=== PATIENT | male | born 1990 | race Caucasian/White ===

== ENCOUNTER 2023-01-29 10:01 | Day surgery (SDC) | payer OTHER, SELFPAY ==
[2023-01-26] MEDS: MIDAZOLAM HCL 1 MG/ML inj IVP (12:36)
[2023-01-26] MEDS: fentaNYL 100 MCG/2 ML inj IVP (12:36)
[2023-01-26] MEDS: LACTATED RINGERS 1000 ML 1,000 ML 100 ML IV (12:40)
[2023-01-29] VITALS (12 sets, daily range): BP systolic 114–142; BP diastolic 52–84; PULSE 60–78; RESP 13–19; TEMP 36.3–36.5; O2SAT 93–99; BMI 25.5
[2023-01-29] MEDS: SODIUM CHLORIDE 0.9 % (FLUSH) 10 ML SYRINGE IVF (11:07)
--- NOTE | 2023-01-29 12:44 | SUR.PREOP ---
TIME?OUT:?1232 PT/RN/MDA?VERIFICATION?OF?SURGICAL?SITE,?PROCEDURE,?AND?CONSENT OBTAINED?PRIOR?TO?INVASIVE?PROCEDURE. right shoulder
--- NOTE | 2023-01-29 12:49 | W.PM.NB ---
Nerve Block Nerve Block Time Seen by Provider: 12:33 Date Seen: 01/29/23 Type of block requested by surgeon for post-operative analgesia: supraclavicular Side: right Time out performed: Yes Verification of patient name: Yes Verification of date of : Yes Site marking: site marked Name of person performing procedure: Willard Continuous monitoring Was continuous monitoring of O2 sat, B/P, cardiac monitor technician, recorded every 15 minutes?: Yes Procedure Checklist: sterile prep, needles and gloves Ultrasound guided. Images saved: Yes Medications given in 5ml increments after negative aspiration: Ropivicaine %: 0.5 mL: 20 Needle gauge: 22 Decadron (mg): 10 Precedex (mcg): 25 Patient tolerated procedure well: Yes Block Charges Block Charge (with Pro Fee): Brachial Plexus Use of Ultrasound Machine for Block: Yes- US Guidance/pain block
[2023-01-29] MEDS: CEFAZOLIN 2 GM in 0.9 % SODIUM CHLORIDE Mini-bag 100 ML IVPB (12:50)
--- NOTE | 2023-01-29 12:50 | W.ANESCHARGE ---
Anesthesia Charges Start Date/Time Anesthesia Start Date: 01/29/23 Anesthesia Start Time: 12:40 Stop Date/Time Anesthesia Stop Date: 01/29/23 Anesthesia Stop Time: 14:01
[2023-01-29] MEDS: EPINEPHrine 1 MG in SODIUM CHLORIDE IRRIG SOLUTION 3,000 ML 6002 MG IRRIGATION (13:38)
--- NOTE | 2023-01-29 13:41 | P.ORPRC_ITS ---
Procedure Note Date of procedure: 01/29/23 Procedure: PREOPERATIVE DIAGNOSES: 1. Right shoulder subacromial impingement syndrome. 2. Right shoulder AC joint osteoarthritis, primary, severe POSTOPERATIVE DIAGNOSES: 1. Right shoulder subacromial impingement syndrome. 2. Right shoulder AC joint osteoarthritis, primary, severe NAME OF OPERATION: 1. Right shoulder arthroscopic distal clavicle excision. 2. Right shoulder arthroscopic subacromial decompression/partial acromioplasty SURGEON: Earnest Carlin MD MUSIC INTERN: Layo Stiles PA-C. Of note, an assistant portfolio manager was critical for this case to aide in patient positioning, suture manipulation, arm positioning, instrument positioning, and closure. ANESTHESIA: General plus preoperative supraclavicular block. IMPLANTS: None COMPLICATIONS: None evident INDICATIONS: The patient is a pleasant, 32-year-old male who has experienced right shoulder pain that has been increasing in recent time. Physical exam and imaging were consistent with a subacromial impingement syndrome and AC arthrosis. MRI was obtained indeed confirmed substantial AC joint capsular hypertrophy and edema of the distal clavicle. Given their findings, as well as the pain, and inadequate response to nonoperative management, recommendation was made for surgery. FINDINGS: Exam under anesthesia revealed stable shoulder with excellent range of motion. The diagnostic arthroscopy revealed healthy chondral surfaces of the glenohumeral joint. The Subscapularis tendon was intact with healthy attachment. The long head of the biceps tendon was intact. The rotator cuff tendon was found to be intact with a normal sail sign and no evidence of partial-thickness or full-thickness tearing. The labrum was intact and healthy without evidence of degenerative tearing or fraying. No loose bodies were identified within the pouch or subscapularis recess. PROCEDURE: Following a thorough discussion of risks, benefits, and alternatives, consent was obtained and the right shoulder was marked. The patient was brought to the operating room and placed supine on the operating table. Induction of anesthesia was completed after preoperative supraclavicular block was administered in preop holding. Appropriate time out was performed identifying proper patient, site, and procedure. 2 g IV Ancef was administered within 1 hour of incision preoperatively. The right upper extremity was prepped and draped in the appropriate sterile fashion using ChloraPrep prep. This was after the patient was positioned in the beach chair with their head in neutral alignment and all bony prominences well padded. The shoulder was insufflated with 20mL of normal saline via an 18g spinal needle from a posterior approach. An 11 blade skin incision allowed a blunt trochar to be inserted and diagnostic arthroscopy to be performed with the findings as noted above. An anterior portal was established with an outside in technique. This allowed the probe to be inserted and confirm the diagnostic arthroscopic findings. We then went into the subacromial space. This revealed abundant bursitis and again a hypertrophied AC joint capsule. The shaver and [place] cautery device were then inserted and allowed debridement of the subacromial bursa/subdeltoid bursa. Following this, the subacromial decompression/partial acromioplasty was performed with a 5.5 mm bur. This bur was then utilized for distal clavicle excision removing approximately 8 mm of distal clavicle. The camera was v isualized within the AC joint space and found that the bone was completely removed from the more caudal to the more cephalad position confirming release/excision while sparing the superior and posterior capsule. Thereafter, the shaver was reinserted into the subacromial space and all remaining bony debris was excised. The rotator cuff was reassessed and confirmed to be intact. Instruments removed, excess fluid was drained, closure performed with 4 Monocryl and Steri-Strips. Dressings were applied. Sling was applied. The patient was awoken from anesthesia and transferred to the PACU in stable condition. PLAN: 1. Elbow, forearm, wrist and digit range of motion as tolerated. 2. Encouraged ice. 3. Percocet for pain as needed. 4. Sling for comfort. May remove for ROM and showering. 5. Follow up with me in 1-2 weeks for wound check.
--- NOTE | 2023-01-29 14:04 | W.ANESCHARGE ---
Anesthesia Charges Start Date/Time Anesthesia Start Date: 01/29/23 Anesthesia Start Time: 12:40 Stop Date/Time Anesthesia Stop Date: 01/29/23 Anesthesia Stop Time: 14:01
== END 2023-01-29 15:13 | disposition home or self-care (01) ==
LOC: OR 10:03
PROVIDERS: PCP Surgery; Visit Provider Orthopaedic Surgery Sports Medicine
PROC: (CPT 29805; principal; 2023-01-29 12:00)
DX: M75.41 Impingement syndrome of right shoulder (principal); M19.011 Primary osteoarthritis, right shoulder; M75.51 Bursitis of right shoulder
CPT/HCPCS: 29826; 29824; 01630; 76942; J0171; J0330; J0690; J1100; J2250; J2405; J2704; J2795; J3010; J7120; L3670

== ENCOUNTER 2023-03-21 06:04 | Day surgery (SDC) | payer OTHER, SELFPAY ==
[2023-03-21] VITALS (15 sets, daily range): BP systolic 126–151; BP diastolic 72–96; PULSE 58–83; RESP 16–20; TEMP 36.1–36.6; O2SAT 97–100; BMI 24.4
[2023-03-21] MEDS: LACTATED RINGERS 1000 ML 1,000 ML 100 ML IV (06:50)
[2023-03-21] MEDS: SODIUM CHLORIDE 0.9 % (FLUSH) 10 ML SYRINGE IVF (06:51)
--- NOTE | 2023-03-21 07:06 | SUR.PREOP ---
TIME?OUT:?0707 PT/RN/MDA?VERIFICATION?OF?SURGICAL?SITE,?PROCEDURE,?AND?CONSENT OBTAINED?PRIOR?TO?INVASIVE?PROCEDURE.
[2023-03-21] MEDS: MIDAZOLAM HCL 1 MG/ML inj IVP (07:07)
[2023-03-21] MEDS: fentaNYL 100 MCG/2 ML inj IVP (07:07)
[2023-03-21] MEDS: CEFAZOLIN 2 GM in 0.9 % SODIUM CHLORIDE Mini-bag 100 ML IVPB (07:48)
[2023-03-21] MEDS: EPINEPHrine 1 MG in SODIUM CHLORIDE IRRIG SOLUTION 3,000 ML 12004 MG IRRIGATION ×2 (08:00→08:30)
--- NOTE | 2023-03-21 08:54 | W.ANESCHARGE ---
Anesthesia Charges Start Date/Time Anesthesia Start Date: 03/21/23 Anesthesia Start Time: 07:28 Stop Date/Time Anesthesia Stop Date: 03/21/23 Anesthesia Stop Time: 08:52
--- NOTE | 2023-03-21 09:07 | W.ANESCHARGE ---
Anesthesia Charges Start Date/Time Anesthesia Start Date: 03/21/23 Anesthesia Start Time: 07:28 Stop Date/Time Anesthesia Stop Date: 03/21/23 Anesthesia Stop Time: 08:52
--- NOTE | 2023-03-21 09:08 | P.NB_ITS ---
Nerve Block Nerve Block Time Seen by Provider: 07:12 Date Seen: 03/21/23 Type of block requested by surgeon for post-operative analgesia: supraclavicular Side: left Time out performed: Yes Verification of patient name: Yes Verification of date of : Yes Site marking: site marked Name of person performing procedure: Willard Continuous monitoring Was continuous monitoring of O2 sat, B/P, cardiac cath technologist, recorded every 15 minutes?: Yes Procedure Checklist: sterile prep, needles and gloves Ultrasound guided. Images saved: Yes Medications given in 5ml increments after negative aspiration: Ropivicaine %: 0.5 mL: 20 Needle gauge: 22 Decadron (mg): 10 Precedex (mcg): 25 Patient tolerated procedure well: Yes Block Charges Block Charge (with Pro Fee): Brachial Plexus Use of Ultrasound Machine for Block: Yes- US Guidance/pain block
--- NOTE | 2023-03-21 11:18 | PM.ORPRC ---
Procedure Note Date of procedure: 03/21/23 Procedure: PREOPERATIVE DIAGNOSES: 1. Left shoulder subacromial impingement syndrome. 2. Left shoulder AC joint osteoarthritis, primary, severe POSTOPERATIVE DIAGNOSES: 1. Left shoulder subacromial impingement syndrome. 2. Left shoulder AC joint osteoarthritis, primary, severe NAME OF OPERATION: 1. Left shoulder arthroscopic distal clavicle excision. 2. Left shoulder arthroscopic subacromial decompression/partial acromioplasty SURGEON: Earnest Carlin MD INSULATION HOSEMAN: Be HAMMOND. Of note, an assistant store manager was critical for this case to aide in patient positioning, suture manipulation, arm positioning, instrument positioning, and closure. ANESTHESIA: General plus preoperative supraclavicular block. EBL: 25 mL IMPLANTS: None COMPLICATIONS: None evident INDICATIONS: The patient is a pleasant, 32-year-old male who has experienced left shoulder pain that has been increasing in recent time. Physical exam and imaging were consistent with a subacromial impingement syndrome and AC arthrosis. MRI was obtained indeed confirmed substantial AC joint capsular hypertrophy and edema of the distal clavicle. Given their findings, as well as the pain, and inadequate response to nonoperative management, recommendation was made for surgery. FINDINGS: Exam under anesthesia revealed stable shoulder with excellent range of motion. The diagnostic arthroscopy revealed healthy chondral surfaces of the glenohumeral joint. The Subscapularis tendon was intact with healthy attachment. The long head of the biceps tendon was intact. The rotator cuff tendon was found to be intact with a normal sail sign and no evidence of partial-thickness or full-thickness tearing. The labrum was intact and healthy without evidence of degenerative tearing or fraying. No loose bodies were identified within the pouch or subscapularis recess. PROCEDURE: Following a thorough discussion of risks, benefits, and alternatives, consent was obtained and the operative shoulder was marked. The patient was brought to the operating room and placed supine on the operating table. Induction of anesthesia was completed after preoperative supraclavicular block was administered in preop holding. Appropriate time out was performed identifying proper patient, site, and procedure. 2 g IV Ancef was administered within 1 hour of incision preoperatively. The left upper extremity was prepped and draped in the appropriate sterile fashion using ChloraPrep prep. This was after the patient was positioned in the beach chair with their head in neutral alignment and all bony prominences well padded. The shoulder was insufflated with 20mL of normal saline via an 18g spinal needle from a posterior approach. An 11 blade skin incision allowed a blunt trochar to be inserted and diagnostic arthroscopy to be performed with the findings as noted above. An anterior portal was established with an outside in technique. This allowed the probe to be inserted and confirm the diagnostic arthroscopic findings. We then went into the subacromial space. This revealed abundant bursitis and again a hypertrophied AC joint capsule. The shaver and [place] cautery device were then inserted and allowed debridement of the subacromial bursa/subdeltoid bursa. Following this, the subacromial decompression/partial acromioplasty was performed with a 5.5 mm bur. This bur was then utilized for distal clavicle excision removing approximately 8 mm of distal clavicle. The camera was visualized within the AC joint space and found that the bone was completely removed from the more caudal to the more cephalad position confirming release/excision while sparing the superior and posterior capsule. Thereafter, the shaver was reinserted into the subacromial space and all remaining bony debris was excised. Instruments removed, excess fluid was drained, closure performed with 4 Monocryl and Steri-Strips. Dressings were applied. Sling was applied. The patient was awoken from anesthesia and transferred to the PACU in stable condition. PLAN: 1. Elbow, forearm, wrist and digit range of motion as tolerated. 2. Encouraged ice. 3. Percocet for pain as needed. 4. Sling at all times except for ROM and showering. 5. Follow up with PA visit in 1-2 weeks for wound check.
== END 2023-03-21 10:50 | disposition home or self-care (01) ==
PROVIDERS: PCP Surgery; Visit Provider Orthopaedic Surgery Sports Medicine
PROC: (CPT 29805; principal; 2023-03-21 07:30)
DX: M75.42 Impingement syndrome of left shoulder (principal); M19.012 Primary osteoarthritis, left shoulder; G89.18 Other acute postprocedural pain
CPT/HCPCS: 29824; 29826; 01630; 64415; 76942; J0171; J0330; J0690; J1100; J2250; J2405; J2704; J3010; J7120; L3670

== ENCOUNTER 2025-01-21 09:09 | Outpatient (CLI) | payer BC, SELFPAY ==
--- NOTE | 2025-01-21 09:15 | CRLHL7_ITS ---
For Patients: As a result of the Century Cures Act, medical imaging exams and procedure reports are released immediately into your electronic medical record. You may view this report before your referring provider. If you have questions, please contact your health care provider. Indication: Left shoulder pain Comparison: 12/19/2022 Procedure : Informed consent was obtained. The site was marked. Time-out was performed. The skin of the left shoulder was cleansed with ChloraPrep. A sterile drape was placed. 8 cc of 1 percent lidocaine was administered for superficial anesthesia. Subsequently a 22 gauge spinal needle was introduced into the left shoulder joint under intermittent fluoroscopic guidance. Injection of 2 cc nonionic Omnipaque 240 contrast confirmed intra-articular location. Subsequently 11 cc of dilute gadolinium were injected. The needle was removed and hemostasis achieved with direct pressure. A dressing was placed. The patient tolerated the procedure well without immediate complication and was immediately sent to MRI for imaging. Total fluoroscopy time 0.21 minutes. Impression: Successful fluoroscopically guided right shoulder arthrogram for MRI. Dictated by Saul Noguera MD @ 01/21/2025 1:15:19 PM (Electronically Signed)
--- NOTE | 2025-01-21 10:15 | MR_ITS ---
Patient: PATRICK MCCLOUD Facility:?[facility] Patient ID:?[id number] Site Patient ID:?[id number]. Site :?[id number] Study:?XRay-Shoulder Left ARTHROGRAM DR. BLANCO TO READ-01/21/2025 11:35:04 AM Ordering Physician:?Carmen Holley Final Report: Indication: Left shoulder pain Comparison: 12/19/2022 Procedure : Informed consent was obtained. The site was marked. Time-out was performed. The skin of the left shoulder was cleansed with ChloraPrep. A sterile drape was placed. 8 cc of 1 percent lidocaine was administered for superficial anesthesia. Subsequently a 22 gauge spinal needle was introduced into the left shoulder joint under intermittent fluoroscopic guidance. Injection of 2 cc nonionic Omnipaque 240 contrast confirmed intra-articular location. Subsequently 11 cc of dilute gadolinium were injected. The needle was removed and hemostasis achieved with direct pressure. A dressing was placed. The patient tolerated the procedure well without immediate complication and was immediately sent to MRI for imaging. Total fluoroscopy time 0.21 minutes. Impression: Successful fluoroscopically guided right shoulder arthrogram for MRI. Dictated by Saul Blanco MD @ 01/21/2025 1:15:19 PM (Electronic Signature)
== END 2025-01-21 09:10 | disposition home or self-care (01) ==
LOC: RAD 09:11
PROVIDERS: PCP Surgery; Visit Provider Family Medicine
DX: M25.512 Pain in left shoulder (principal); M75.82 Other shoulder lesions, left shoulder
CPT/HCPCS: 23350; 73222; 77002; A9575; Q9966